=== PATIENT | female | born 1980 | race Caucasian/White ===

== ENCOUNTER 2021-10-08 21:41 | Emergency (ER) | payer OTHER ==
[2021-10-08] MEDS ORDERED: Ketorolac Tromethamine 30 MG/ML VIAL ONE (22:49)
[2021-10-08] MEDS ORDERED: Acetaminophen 500 MG TAB ONE (22:49)
== END 2021-10-09 00:10 | disposition home or self-care (01) ==
LOC: CSHERS 21:41
DX: S80.11XA Contusion of right lower leg, initial encounter (principal); W18.2XXA Fall in (into) shower or empty bathtub, initial encounter
CPT/HCPCS: 72170; 96372; J1885